=== PATIENT | female | born 1960 | race Caucasian/White ===

== ENCOUNTER 2021-09-05 11:14 | Emergency (ER) | payer MEDICARE, SELFPAY ==
[2021-09-05] VITALS (20 sets, daily range): BP systolic 127–170; BP diastolic 98–116; PULSE 61–118; RESP 18–20; TEMP 36.6; O2SAT 96–99; BMI 23.3
--- NOTE | 2021-09-05 11:16 | PC.NURSE ---
Lara Butler RN and TAZ Cevallos at BS
--- NOTE | 2021-09-05 11:21 | XR_ITS ---
FINAL REPORT CLINICAL HISTORY: weakness, soa, nose bleed, cough, smoker FINDINGS: PA and lateral views of the chest were obtained. There is no prior exam for comparison. The cardiac and mediastinal silhouettes are within normal limits. There are emphysematous changes. There is subtle right middle lobe opacity that could represent atelectasis or pneumonia. There is no pleural effusion or pneumothorax. No acute osseous abnormality is identified. IMPRESSION: Subtle right middle lobe opacity could represent atelectasis or pneumonia. Reviewed, Interpreted and Dictated by Lenore Saavedra MD Transcribed by Sandeep Mejia Authenticated by Lenore Saavedra MD on 09/05/2021 01:18:31 PM [facility]
--- NOTE | 2021-09-05 11:28 | ECG_ITS ---
APPROVED REPORT Exam: Resting ECG HR:99 bpm ECG Measurements Heart Rate 99 AXES CA 159 P 84 QRSd 86 QRS 77 QT 348 T 86 QTc 404 Conclusion SINUS RHYTHM WITH OCCASIONAL SUPRAVENTRICULAR PREMATURE COMPLEXES RIGHT ATRIAL ENLARGEMENT [0.3mV P-WAVE] MODERATE ST DEPRESSION [0.05+ mV ST DEPRESSION] ABNORMAL ECG UNCONFIRMED REPORT Electronically signed by : Rony Hough MD 09/06/2021 10:31:17
[2021-09-05 11:29] LABS: Influenza A, PCR Not Detected (NotDetected); Influenza B, PCR Not Detected (NotDetected)
--- NOTE | 2021-09-05 11:31 | PC.NURSE ---
patient to radiology with instrument tech by wheelchair
--- NOTE | 2021-09-05 11:32 | HMH.EDGENADL ---
ED Disposition Clinical Impression: COVID-19 virus infection, Dehydration, Polycythemia Urinary tract infection Qualifiers: Urinary tract infection type: acute cystitis Hematuria presence: without hematuria Qualified Code(s): N30.00 - Acute cystitis without hematuria Disposition: Home, Self-Care Condition on Discharge: Good Additional Instructions: Compazine as needed for nausea. Additional instructions for URINARY TRACT INFECTION: Take antibiotic as prescribed. See your physician in 2-3 days for follow up and culture results. Return immediately if you have an uncontrollable fever greater than 102 degrees, severe back or abdominal pain, inability to urinate, or repetitive vomiting. Follow-up with primary care provider next week. Return if symptoms worsen. Rest, drink plenty of fluids. Tylenol or Ibuprofen for fever and/or aches and pains. Monitor your symptoms. IF YOU HAVE AN EMERGENCY WARNING SIGN (INCLUDING TROUBLE BREATHING), SEEK EMERGENCY MEDICAL CARE IMMEDIATELY. COVID-19 Isolation: People with COVID-19 should isolate for 5 days. Then if they are asymptomatic (no symptoms) or their symptoms are resolving (without fever for 24 hours), follow that by 5 days of wearing a mask when around others to minimize the risk of infecting people you encounter. If you test positive for COVID-19 and never develop symptoms, day 0 is the day of your positive viral test (based on the date you were tested) and day 1 is the first full day after your positive test. If you develop symptoms after testing positive, your 5-day isolation period must start over. Day 0 is your first day of symptoms. Day 1 is the first full day after your symptoms developed. What to do: Stay in a separate room from other household members, if possible. Use a separate bathroom, if possible. Avoid contact with other members of the household and pets. Don?t share personal household items, like cups, towels, and utensils. Wear a mask when around other people if able. Prescriptions: Prochlorperazine Maleate [Compazine 10mg tablet] 10 mg PO TIDP PRN #10 tab PRN Reason: Vomiting Prescription Printed Cefdinir [Omnicef 300mg Capsule] 300 mg PO BID #20 cap Prescription Printed Referrals: Provider,Referral, [Referring] - - Critical Care Critical Care Time: No Attestation: On , the high probability of a clinically significant, sudden or life threatening deterioration of the following system(s) required my full and direct attention, intervention and personal management. The time I documented below is in addition to time spent performing reported procedures but includes the following listed in this critical care notation. Medical Decision Making - Paul Inquiry Pt receiving controlled substance: No Vital Signs: 09/05/21 11:15 09/05/21 11:29 09/05/21 11:32 Temperature 97.8 F Temperature Source Oral Pulse Rate 113 H 118 H Pulse Rate [Left Radial] 107 H Respiratory Rate 20 Blood Pressure 131/98 H 131/98 H Blood Pressure [Right Arm] 167/116 H Blood Pressure Mean 109 Blood Pressure Mean [Right Arm] 133 Blood Pressure Source Automatic Cuff Blood Pressure Source [Right Arm] Automatic Cuff Blood Pressure Position Sitting Blood Pressure Position [Right Arm] Sitting 02 Sat by Pulse Oximetry 96 97 97 Oxygen Delivery Method Room Air Room Air 09/05/21 12:58 09/05/21 13:00 09/05/21 13:14 Temperature Temperature Source Pulse Rate 90 90 97 H Pulse Rate [Left Radial] Respiratory Rate Blood Pressure 147/113 H 141/102 H 127/98 H Blood Pressure [Right Arm] Blood Pressure Mean 124 122 107 Blood Pressure Mean [Right Arm] Blood Pressure Source Blood Pressure Source [Right Arm] Blood Pressure Position Blood Pressure Position [Right Arm] 02 Sat by Pulse Oximetry 99 99 99 Oxygen Delivery Method 09/05/21 13:30 09/05/21 13:37 09/05/21 14:00 Temperature Temperat
[2021-09-05 11:33] LABS: Basophils # 0.1 K/mm3 (0-0.2); Basophils % 1.6 % (0.1-2.0); Eosinophils % 0.1 % (0.1-12.0); Hematocrit 56.5 % (37.0-47.0); Lymphocytes # 1.1 K/mm3 (0.7-4.5); Lymphocytes % 15.9 % (10-50); Mean Corpuscular HGB Conc 32.8 g/dL (31.8-35.4); Mean Corpuscular Hemoglobin 32.5 pg (27.0-31.2); Mean Platelet Volume 9.7 fl (7.4-10.4); Monocytes # 0.6 K/mm3 (0.1-1.0); Monocytes % 7.9 % (1.7-9.3); Neutrophils # 5.3 K/mm3 (1.8-7.8); Neutrophils % 74.6 % (37.0-80.0); Platelet Count 169 K/mm3 (142-424); Red Blood Count 5.71 M/mm3 (4.20-5.40); Red Cell Distribution Width 15.1 % (11.5-17.5); White Blood Count 7.1 K/mm3 (4.8-10.8)
--- NOTE | 2021-09-05 11:36 | PC.NURSE ---
patient back from Radiology by wheelchair patient is in restroom attempting to provide urine specimen
[2021-09-05 11:37] LABS: Hemoglobin 18.6 g/dL (12.2-16.2)
[2021-09-05 11:39] LABS: Chloride 106 mmol/L (98-107); Potassium 3.2 mmoL/L (3.5-5.1); Sodium 137 mmol/L (136-145)
--- NOTE | 2021-09-05 11:40 | PC.NURSE ---
ED at ; UA sent to lab
[2021-09-05 11:42] LABS: Alanine Aminotransferase 34 U/L (12-78); Albumin/Globulin Ratio 1.4 (1.1-1.8); Alkaline Phosphatase 144 U/L (38-126); Anion Gap 15.2 mEq/L (5-15); Aspartate Amino Transferase 54 U/L (14-36); Bilirubin,Total 0.9 mg/dl (0.2-1.3); Blood Urea Nitrogen 16 mg/dl (7-17); Calcium 10.3 mg/dl (8.4-10.2); Carbon Dioxide 19 mmol/L (22.0-30.0); Creatinine Clearance Estimated 78 mL/min (50-200); Estimated Glomerular Filt Rate 73 ml/min (>60); GFR (African American) 89 ML/MIN (>60); Globulin 3.5 g/dL (1.3-3.2); Glucose 182 mg/dl (74-100); Total Protein,Serum 8.5 g/dl (6.3-8.2)
[2021-09-05 11:45] LABS: Microscopic, Urine URINE MICROSCOPIC (MICROSCOPIC)
--- NOTE | 2021-09-05 11:45 | CT_ITS ---
FINAL REPORT TECHNIQUE: Thin section axial images were obtained from the lung bases to the pubic symphysis without IV contrast. CLINICAL HISTORY: abdo pain, vomiting FINDINGS: There are faint reticular nodular opacities in the right lower lobe which are favored to be related to bronchopneumonia. There is a nonobstructing left renal stone. There are no obstructing renal or ureteral stones. There is no hydronephrosis or perinephric stranding. The gallbladder is present. The remaining unenhanced solid abdominal organs are unremarkable. There are several mildly thickened small bowel loops in the upper abdomen which could represent enteritis. There is no evidence of small bowel obstruction. The appendix is mildly dilated at 10 mm with no significant surrounding inflammatory changes. The uterus is unremarkable. There is no lymphadenopathy or ascites. No acute osseous abnormality is identified. IMPRESSION: 1. Several mildly prominent small bowel loops in the upper abdomen, consider enteritis. 2. Mildly dilate appendix without surrounding inflammatory changes. If there is clinical concern for acute appendicitis, consider repeat imaging with oral and IV contrast in 24 hours. 3. Nonobstructing left renal stone Reviewed, Interpreted and Dictated by Lenore Saavedra MD Transcribed by Edyta Quinones Authenticated by Lenore Saavedra MD on 09/05/2021 01:49:41 PM [facility]
[2021-09-05 11:47] LABS: Appearance,Urine CLEAR (Clear); Blood, Urine 3+ (Negative); Color,Urine YELLOW (Yellow); Glucose,Urine (UA) Negative (Negative); Ketones,Urine 1+ (Negative); Leukocyte Esterase,Urine 2+ (Negative); Nitrate,Urine POSITIVE (Negative); Protein,Urine 3+ (Negative); Specific Gravity, Urine 1.025 (1.005-1.030); Urobilinogen,Urine 0.2 EU/dl (0.2)
--- NOTE | 2021-09-05 11:49 | PC.NURSE ---
notified lab of new orders added on for pt, spoke with ramsey
[2021-09-05 11:52] LABS: Coronavirus 19, PCR Detected (NotDetected)
[2021-09-05 11:52] LABS: Bilirubin,Urine 2+ (Negative)
[2021-09-05 11:59] LABS: Lipase 305 U/L (23-300)
--- NOTE | 2021-09-05 11:59 | PC.NURSE ---
ED MD speaking with patient at BS, giving an update
--- NOTE | 2021-09-05 12:03 | PC.NURSE ---
Isolation precautions sign placed outside patients door
--- NOTE | 2021-09-05 12:32 | PC.NURSE ---
patient continues to dry heave, Dr. Moncada is aware that she is unable to drink her oral contrast. He is changing order to CT without contrast and I have notified Radiology of order change, spoke with Che. Lara Butler RN at giving patient meds
[2021-09-05 12:34] LABS: WBC,Urine 20-50 #/hpf (0-3)
[2021-09-05 12:35] LABS: Bacteria,Urine 4+ /lpf
--- NOTE | 2021-09-05 12:39 | PC.NURSE ---
patient to CT by wheelchair with technical sales specialist
--- NOTE | 2021-09-05 14:31 | PC.NURSE ---
pt given ice chips at this time, okayed per ER MD will continue to monitor.
--- NOTE | 2021-09-05 14:43 | PC.NURSE ---
Pt unable to tolerate ice chips at this time. MD aware and medicine ordered as seen on chart
--- NOTE | 2021-09-05 16:53 | PC.NURSE ---
ED MD at speaking with patient
--- NOTE | 2021-09-05 16:55 | PC.NURSE ---
patient given something to drink for PO challenge
--- NOTE | 2021-09-05 17:36 | PC.NURSE ---
Pt wants to drive herself home due to her daughter not being able to come get her since she wasnt vaccinated and has two kids. at bs, states pt can leave in 1 hour, pt seems alert at this time
--- NOTE | 2021-09-05 18:46 | PC.NURSE ---
Pt sitting up in bed.
--- NOTE | 2021-09-05 19:12 | PC.NURSE ---
Pt able to ambulate without any trouble. A&O x4
[2021-09-05 22:06] LABS: Amphetamine/Metha Screen,Urine Negative ng/ml (<1000)
[2021-09-05 22:07] LABS: Barbiturates Screen,Urine Negative ng/ml (<200)
[2021-09-05 22:08] LABS: Benzodiazepines Screen,Urine Negative ng/ml (<200); Cannabinoid Screen,Urine Negative ng/ml (<50)
[2021-09-05 22:09] LABS: Cocaine Screen,Urine Negative ng/ml (<300)
[2021-09-05 22:10] LABS: Methadone Screen,Urine Negative ng/ml (<300); Opiate Screen,Urine Negative ng/ml (<300)
[2021-09-05 22:11] LABS: Phencyclidine Screen,Urine Negative ng/ml (<25)
== END 2021-09-05 19:12 | disposition home or self-care (01) ==
PROVIDERS: Emergency Provider Emergency Medicine; PCP Family Medicine
DX: U07.1 COVID-19 (principal); N30.00 Acute cystitis without hematuria; E86.0 Dehydration; R53.1 Weakness; R06.02 Shortness of breath; R04.0 Epistaxis; R63.4 Abnormal weight loss; Z79.1 Long term (current) use of non-steroidal anti-inflammatories (NSAID); Z79.52 Long term (current) use of systemic steroids; Z79.82 Long term (current) use of aspirin; Z79.899 Other long term (current) drug therapy; Z88.2 Allergy status to sulfonamides; Z68.23 Body mass index [BMI] 23.0-23.9, adult; Z87.891 Personal history of nicotine dependence
CPT/HCPCS: 71046; 74176; 80053; 80305; 81001; 83690; 85025; 87086; 87186; 93005; 96361; 96374; 96375; 99285; C9803; J0696; J2405; U0003; U0005